=== PATIENT | female | born 1990 | race Caucasian/White ===

== ENCOUNTER 2020-10-14 06:57 | Inpatient (IN) | payer MEDICAID ==
[2020-10-14] MEDS ORDERED: Calcium Carbonate 500 MG Tab.Chew PO PRN (07:46)
[2020-10-14] MEDS ORDERED: Sodium Chloride 0.9% 10 ML Syringe FLUSH PRN (07:46)
[2020-10-14] MEDS ORDERED: Ondansetron 4 MG/2 ML SDV IV PRN (07:46)
[2020-10-14] MEDS ORDERED: Oxytocin 10 Units/1 ML SDV IM ONE (08:00)
[2020-10-14] MEDS ORDERED: Misoprostol 50 MCG (1/2 of 100 MCG) Tab PO ONE (08:00)
--- NOTE | 2020-10-14 08:01 | PCM.LDHP ---
L&D History of Present Illness - General Date of Service: 10/14/20 Admit Problem/Dx: Patient Status Order with Admit Dx/Problem 10/14/20 07:46 Patient Status [ADT] Routine Admission Diagnosis/Problem Admission Diagnosis/Problem Term Source of Information: Patient History Limitations: Reports: No Limitations - History of Present Illness Introduction:: 10/14/20 Trisha is a 30 yo here at 38 0/7 weeks with prelabor ROM of clear fluid today at 0300. She is not feeling any contractions although there are some on the monitor. Baby is active and moving and heart tones are category 1. She is dated based off ultrasound although LMP date makes her due today. She has been measuring big this by 2 cm consistently. She has had an uncomplicated . She did smoke cigarettes but quit a couple of weeks ago. She is GBS negative, rubella immune, HIV/Hep B/C/RPR all NR, B NEGATIVE blood type. Anticipate . Timing/Duration: Reports: intermittent Improves with: Reports: None Worsens with: Reports: None Associated Symptoms: Reports: vaginal fluid (clear amniotic fluid). Denies: vaginal bleeding - Related Data Allergies/Adverse Reactions: Allergies Allergy/AdvReac Type Severity Reaction Status Date / Time cefaclor [From Ceclor] Allergy Cannot Verified 01/14/19 03:39 Remember sulfamethoxazole Allergy Hives Verified 01/14/19 03:39 [From Bactrim] trimethoprim [From Bactrim] Allergy Hives Verified 01/14/19 03:39 Home Medications: Home Meds Albuterol Sulfate 3 inh IH Q6HR PRN 10/14/20 [History] FLUoxetine HCl [Prozac] 20 mg PO DAILY 10/14/20 [History] 25/Iron/Folate 6/Dha [Vitamedmd One Rx Softgel] 1 cap PO DAILY 10/14/20 [History] Past Medical History HEENT History: Reports: Impaired Vision Cardiovascular History: Reports: Syncope Respiratory History: Reports: Asthma, Sleep Apnea Gastrointestinal History: Reports: Chronic Constipation, Chronic Diarrhea [employer] History: Reports: : 1 Para: 0 LMP (Approximate): Musculoskeletal History: Reports: Fracture, Other (See Below) Other Musculoskeletal History: broken nose Psychiatric History: Reports: Addiction, Anxiety, Depression, Psych Hospitalization(s), Suicide Attempt, Other (See Below) Other Psychiatric History: ETOH and Meth - Infectious Disease History Infectious Disease History: Reports: Chicken Pox Social & Family History - Tobacco Use Tobacco Use Status *Q: Former Tobacco User Tobacco Use Within Last Twelve Months: Cigarettes - Caffeine Use Caffeine Use: Reports: Coffee, Soda - Alcohol Use Alcohol Use History: No H&P Review of Systems - Review of Systems: Review Of Systems: See Below General: Reports: No Symptoms HEENT: Reports: No Symptoms Pulmonary: Reports: No Symptoms Cardiovascular: Reports: No Symptoms Gastrointestinal: Reports: No Symptoms Genitourinary: Reports: No Symptoms Musculoskeletal: Reports: No Symptoms Skin: Reports: No Symptoms Psychiatric: Reports: No Symptoms Neurological: Reports: No Symptoms Hematologic/Lymphatic: Reports: No Symptoms Immunologic: Reports: No Symptoms L&D Exam - Exam Exam: See Below - Vital Signs Vital Signs: Last Vital Signs Temp 36.6 C 10/14/20 07:28 Pulse 72 10/14/20 07:28 Resp 20 10/14/20 07:28 BP 143/88 H 10/14/20 07:28 Pulse Ox 97 10/14/20 07:28 Weight: 118.388 kg - OB Specific Contraction Frequency (min): intermittent Contraction Intensity: Mild Movement: Active Heart Tones: Present Heart Rate (FHR) Variability: Moderate (6-25 bmp) Presentation: Vertex - Wilson Score Wilson Score Cervix Position: Midposition Wilson Score Consistency: Medium Wilson Score Effacement: 51-70% Wilson Score Dilation: 1-2 cm Wilson Score Infant's Station: -2 Wilson Score Total: 6 - Exam General: Alert, Oriented HEENT: PERRLA, Conjunctiva Clear, EACs Clear, EOMI, Hearing Intact, Mucosa Moist & [place], Nares Patent, Normal Nasal Septum, Pupils Equal, Pupils Reactive Neck: Supple, Trachea Midline Lungs: Clear to Auscultation, Normal Respiratory Effort Cardiovascular: Regular Rate, Regular Rhythm GI/Abdominal Exam: Normal Bowel Sounds, Soft, Non-Tender, No Mass, Pelvis Stable Rectal Exam: Normal Exam Genitourinary: Normal external exam, Normal bimanual exam, Cervical dilitation. No: Vaginal bleeding Back Exam: Normal Inspection, Full Range of Motion Extremities: Normal Inspection, Normal Range of Motion, Non-Tender, No Pedal Edema, Normal Capillary Refill Skin: Warm, Dry, Intact Neurological: Cranial Nerves Intact, Reflexes Equal Bilateral Psychiatric: Alert, Normal Affect, Normal Mood - Patient Data Lab Results Last 24 hrs: Laboratory Results - last 24 hr 10/14/20 10/14/20 Range/Units 07:13 07:20 Urine Color Yellow (YELLOW) Urine Appearance Cloudy A (CLEAR) Urine pH 7.0 (5.0-8.0) Ur Specific [place] 1.020 (1.008-1.030) Urine Protein 100 H (NEGATIVE) mg/dL Urine Glucose (UA) Negative (NEGATIVE) mg/dL Urine Ketones Negative (NEGATIVE) mg/dL Urine Occult Blood Trace-intact H (NEGATIVE) Urine Nitrite Negative (NEGATIVE) Urine Bilirubin Negative (NEGATIVE) Urine Urobilinogen 0.2 (0.2-1.0) EU/dL Ur Leukocyte Esterase Trace H (NEGATIVE) Urine RBC 0-5 (0-5) Urine WBC 0-5 (0-5) Ur Epithelial Cells Many Amorphous Sediment Few Urine Bacteria Moderate Urine Mucus Moderate Membrane Rupture Positive H (NEGATIVE) - Problem List (1) 38 weeks gestation of SNOMED Code(s): 05648872 ICD Code: Z3A.38 - 38 WEEKS GESTATION OF Status: Acute Current Visit: Yes (2) Rupture of membranes with clear amniotic fluid SNOMED Code(s): 874715743, 123562337 ICD Code: [id number] - Status: Acute Current Visit: Yes Problem List Initiated/Reviewed/Updated: Yes Orders Last 24hrs: Active Orders 24 hr Category Date Time Status Patient Status [ADT] Routine ADT 10/14/20 07:46 Ordered Communication Order [RC] ASDIRECTED Care 10/14/20 07:46 Ordered Heart Tones [RC] PER UNIT ROUTINE Care 10/14/20 07:46 Ordered Notify Provider Vital Signs [RC] PRN Care 10/14/20 07:48 Ordered Notify Provider [RC] PRN Care 10/14/20 07:46 Ordered OB Check [OM.PC] Click to Edit Care 10/14/20 07:04 Ordered Up ad Mariel [RC] ASDIRECTED Care 10/14/20 07:46 Ordered Vital Signs [RC] PER UNIT ROUTINE Care 10/14/20 07:46 Ordered Regular Diet [DIET] Diet 10/14/20 Breakfast Ordered CBC W/O DIFF,HEMOGRAM [HEME] Routine Lab 10/14/20 07:46 Ordered Calcium Carbonate [Tums] Med 10/14/20 07:46 Ordered 1,000 mg PO Q2HR PRN Ondansetron [Zofran] Med 10/14/20 07:46 Ordered 4 mg IV Q4H PRN Oxytocin [Pitocin] Med 10/14/20 07:46 Once 10 unit IM ONETIME ONE Sodium Chloride 0.9% [Saline Flush] Med 10/14/20 07:46 Ordered 10 ml FLUSH ASDIRECTED PRN miSOPROStoL [Cytotec] Med 10/14/20 07:50 Once 50 mcg PO ONETIME ONE Saline Lock Insert [OM.PC] Routine Oth 10/14/20 07:46 Ordered Resuscitation Status Routine Resus Stat 10/14/20 07:46 Ordered Medication Orders Calcium Carbonate/Glycine (Calcium Carbonate 500 Mg Tab.Chew) 1,000 mg PO Q2H PRN PRN Reason: Indigestion Misoprostol (Misoprostol 50 Mcg (1/2 Of 100 Mcg) Tab) 50 mcg PO ONETIME ONE Stop: 10/14/20 08:01 Ondansetron HCl (Ondansetron 4 Mg/2 Ml Sdv) 4 mg IV Q4H PRN PRN Reason: Nausea/Vomiting Oxytocin (Oxytocin 10 Units/1 Ml Sdv) 10 unit IM ONETIME ONE Stop: 10/14/20 08:01 Sodium Chloride (Sodium Chloride 0.9% 10 Ml Syringe) 10 ml FLUSH ASDIRECTED PRN PRN Reason: Keep Vein Open Assessment/Plan Comment:: 10/14/20 30 yo at 38 0/7 weeks here with prelabor ROM of clear fluid Intermittent contractions, not felt Uncomplicated SVE /-2 GBS negative B NEGATIVE blood type, rhogam done at 28 weeks Plan: Options discussed including expectant management, oral cytotec, or IV pitocin. Patient agrees to oral cytotec to ripen cervix Intermittent monitoring Plan will be to recheck at noon or earlier if needed Anticipate
--- NOTE | 2020-10-14 14:21 | PCM.PNLD ---
Labor Progress Note - VS & Meds Vital Signs: Last Vital Signs Temp 36.4 C 10/14/20 11:30 Pulse 74 10/14/20 11:30 Resp 16 10/14/20 11:30 BP 129/75 10/14/20 11:30 Pulse Ox 98 10/14/20 08:54 Active Medications: Current Medications Calcium Carbonate/Glycine (Calcium Carbonate 500 Mg Tab.Chew) 1,000 mg PO Q2H PRN PRN Reason: Indigestion Ondansetron HCl (Ondansetron 4 Mg/2 Ml Sdv) 4 mg IV Q4H PRN PRN Reason: Nausea/Vomiting Sodium Chloride (Sodium Chloride 0.9% 10 Ml Syringe) 10 ml FLUSH ASDIRECTED PRN PRN Reason: Keep Vein Open Discontinued Medications Misoprostol (Misoprostol 50 Mcg (1/2 Of 100 Mcg) Tab) 50 mcg PO ONETIME ONE Stop: 10/14/20 08:01 Last Admin: 10/14/20 08:00 Dose: 50 mcg Documented by: Oxytocin (Oxytocin 10 Units/1 Ml Sdv) 10 unit IM ONETIME ONE Stop: 10/14/20 08:01 - Uterine Contractions Uterine Monitoring Mode: External [place] Contraction Frequency (min): 5 Contraction Duration (sec): 30-70 Contraction Intensity: Mild to Moderate Uterine Resting Tone: Soft - Monitoring Monitor Mode: External Ultrasound Heart Rate (FHR) Variability: Moderate (6-25 bmp) Accelerations: Present, 15x15 Decelerations: None Strip Review: Category I - Vaginal Exam Dilation (cm): 3 Effacement (Percent): 80 Station: -2 Cervical Position: Midposition Sterile Vaginal Exam Performed By: Skye Prasad - Labor Progress (Free Text) Labor Progress: 10/14/20 Patient is feeling contractions every 5-6 minutes, moderate. Novii is on and picking up small contractions that are not palpated. SVE /-2. Oral cytotec 25 mcg ordered. Patient will use the tub now for pain control. Continue to monitor.
[2020-10-14] MEDS ORDERED: Misoprostol 25 MCG (1/4 of 100 MCG) Tab PO ONE (14:30)
--- NOTE | 2020-10-14 16:31 | PCM.PNLD ---
Labor Progress Note - VS & Meds Vital Signs: Last Vital Signs Temp 36.7 C 10/14/20 15:33 Pulse 65 10/14/20 15:33 Resp 16 10/14/20 15:33 BP 143/85 H 10/14/20 15:33 Pulse Ox 98 10/14/20 08:54 Active Medications: Current Medications Calcium Carbonate/Glycine (Calcium Carbonate 500 Mg Tab.Chew) 1,000 mg PO Q2H PRN PRN Reason: Indigestion Oxytocin/Sodium Chloride (Pitocin In Ns 20 Units/1,000 Ml) 20 unit in 1,000 mls @ 999 mls/hr IV ASDIRECTED ANGUS Ondansetron HCl (Ondansetron 4 Mg/2 Ml Sdv) 4 mg IV Q4H PRN PRN Reason: Nausea/Vomiting Sodium Chloride (Sodium Chloride 0.9% 10 Ml Syringe) 10 ml FLUSH ASDIRECTED PRN PRN Reason: Keep Vein Open Discontinued Medications Misoprostol (Misoprostol 50 Mcg (1/2 Of 100 Mcg) Tab) 50 mcg PO ONETIME ONE Stop: 10/14/20 08:01 Last Admin: 10/14/20 08:00 Dose: 50 mcg Documented by: Misoprostol (Misoprostol 25 Mcg (1/4 Of 100 Mcg) Tab) 25 mcg PO ONETIME ONE Stop: 10/14/20 14:31 Last Admin: 10/14/20 14:47 Dose: 25 mcg Documented by: Oxytocin (Oxytocin 10 Units/1 Ml Sdv) 10 unit IM ONETIME ONE Stop: 10/14/20 08:01 Last Admin: 10/14/20 15:47 Dose: Not Given Documented by: - Uterine Contractions Uterine Monitoring Mode: External [place] Contraction Frequency (min): 4-5 Contraction Duration (sec): 40-60 Contraction Intensity: Mild to Moderate Uterine Resting Tone: Soft - Monitoring Monitor Mode: External Ultrasound Heart Rate (FHR) Variability: Moderate (6-25 bmp) Accelerations: Present, 15x15 Decelerations: None Strip Review: Category I - Vaginal Exam Dilation (cm): 3-4 Effacement (Percent): 90 Station: -2 Cervical Position: Posterior Sterile Vaginal Exam Performed By: Skye Prasad - Labor Progress (Free Text) Labor Progress: 10/14/20 SVE 3-4/90/-2, patient feeling strong contractions every 4-5 min. She is using the tub for pain control, wants to use nitrous when she is ready. Plan is to do expectant management for now and recheck in 2 hours and consider pitocin titration then. Category 1 tracing.
--- NOTE | 2020-10-14 22:16 | PCM.PNLD ---
Labor Progress Note - VS & Meds Vital Signs: Last Vital Signs Temp 37.0 C 10/14/20 19:36 Pulse 67 10/14/20 21:00 Resp 18 10/14/20 21:00 BP 153/99 H 10/14/20 21:00 Pulse Ox 99 10/14/20 19:50 Active Medications: Current Medications Calcium Carbonate/Glycine (Calcium Carbonate 500 Mg Tab.Chew) 1,000 mg PO Q2H PRN PRN Reason: Indigestion Oxytocin/Sodium Chloride (Pitocin In Ns 20 Units/1,000 Ml) 20 unit in 1,000 mls @ 999 mls/hr IV ASDIRECTED ANGUS Last Infusion: 10/14/20 20:52 Dose: 12 mls/hr Documented by: Ondansetron HCl (Ondansetron 4 Mg/2 Ml Sdv) 4 mg IV Q4H PRN PRN Reason: Nausea/Vomiting Sodium Chloride (Sodium Chloride 0.9% 10 Ml Syringe) 10 ml FLUSH ASDIRECTED PRN PRN Reason: Keep Vein Open Discontinued Medications Misoprostol (Misoprostol 50 Mcg (1/2 Of 100 Mcg) Tab) 50 mcg PO ONETIME ONE Stop: 10/14/20 08:01 Last Admin: 10/14/20 08:00 Dose: 50 mcg Documented by: Misoprostol (Misoprostol 25 Mcg (1/4 Of 100 Mcg) Tab) 25 mcg PO ONETIME ONE Stop: 10/14/20 14:31 Last Admin: 10/14/20 14:47 Dose: 25 mcg Documented by: Oxytocin (Oxytocin 10 Units/1 Ml Sdv) 10 unit IM ONETIME ONE Stop: 10/14/20 08:01 Last Admin: 10/14/20 15:47 Dose: Not Given Documented by: - Uterine Contractions Uterine Monitoring Mode: External [place] Contraction Frequency (min): 1.5-3 Contraction Duration (sec): 40-60 Contraction Intensity: Mild to Moderate Uterine Resting Tone: Soft Other Uterine Monitoring: NOVII - Monitoring Monitor Mode: External Ultrasound Heart Rate (FHR) Baseline: 130 Heart Rate (FHR) Variability: Moderate (6-25 bmp) Accelerations: Present, 15x15 Decelerations: None, Early Strip Review: Category II - Vaginal Exam Dilation (cm): 6 Effacement (Percent): 90 Station: -1 Cervical Position: Midposition Sterile Vaginal Exam Performed By: Skye Prasad - Labor Progress (Free Text) Labor Progress: 10/14/20 Patient using nitrous for pain control. Very difficult time getting baby to continue to brain picker on Novii regardless of troubleshooting, moving monitor. Moved to portable set now. Good variability, category 1-2 strip. Tub and hands and knees used. Continue to monitor closely.
[2020-10-14] MEDS ORDERED: Sodium Chloride 0.9% 500 ML IV ONE (23:40)
[2020-10-15] MEDS ORDERED: Sodium Chloride 0.9% 10 ML Syringe FLUSH PRN (00:36)
[2020-10-15] MEDS ORDERED: Naloxone 0.4 MG/ML SDV IVPUSH PRN (00:36)
[2020-10-15] MEDS ORDERED: ePHEDrine 50 MG/ML SDV IVPUSH PRN (00:36)
[2020-10-15] MEDS ORDERED: diphenhydrAMINE 50 MG/ML SDV IVPUSH PRN ×2 (00:36)
[2020-10-15] MEDS ORDERED: Sodium Chloride 0.9% 1,000 ML IV SCH ×2 (00:42→00:55)
[2020-10-15] MEDS ORDERED: Ropivacaine 100 ML ONE (01:34)
[2020-10-15] MEDS ORDERED: Terbutaline 1 MG/ML SDV ONE (01:48)
[2020-10-15] MEDS ORDERED: Oxytocin 10 Units/1 ML SDV ONE ×3 (01:52→04:21)
[2020-10-15] MEDS ORDERED: Ondansetron 4 MG/2 ML SDV ONE (01:52)
[2020-10-15] MEDS ORDERED: Sodium Chloride 0.9% 20 ML ONE (01:53)
[2020-10-15] MEDS ORDERED: ePHEDrine 50 MG/ML SDV ONE (01:53)
[2020-10-15] MEDS ORDERED: Phenylephrine 1% 10 MG/ML SDV ONE (01:53)
[2020-10-15] MEDS ORDERED: Bupivacaine 0.5% 30 ML SDV ONE (01:55)
[2020-10-15] MEDS: Levofloxacin 500 MG/20 ML SDV ONE ×2 (02:00→02:40)
[2020-10-15] MEDS ORDERED: Terbutaline 1 MG/ML SDV SUBCUT ONE (02:00)
--- NOTE | 2020-10-15 02:03 | PCM.PNLD ---
Labor Progress Note - VS & Meds Vital Signs: Last Vital Signs Temp 37.0 C 10/14/20 19:36 Pulse 79 10/14/20 23:39 Resp 16 10/14/20 23:39 BP 140/74 10/14/20 23:06 Pulse Ox 98 10/14/20 23:39 Active Medications: Current Medications Calcium Carbonate/Glycine (Calcium Carbonate 500 Mg Tab.Chew) 1,000 mg PO Q2H PRN PRN Reason: Indigestion Diphenhydramine HCl (Diphenhydramine 50 Mg/Ml Sdv) 25 mg IVPUSH Q6H PRN PRN Reason: Itching Diphenhydramine HCl (Diphenhydramine 50 Mg/Ml Sdv) 50 mg IVPUSH Q6H PRN PRN Reason: Itching Ephedrine Sulfate (Ephedrine 50 Mg/Ml Sdv) 10 mg IVPUSH ASDIRECTED PRN PRN Reason: Hypotension Oxytocin/Sodium Chloride (Pitocin In Ns 20 Units/1,000 Ml) 20 unit in 1,000 mls @ 999 mls/hr IV ASDIRECTED [facility] [place] Last Infusion: 10/15/20 00:55 Dose: 6 mls/hr Documented by: Sodium Chloride (Normal Saline) 500 mls @ 200 mls/hr IV .BOLUS ONE Stop: 10/15/20 02:09 Last Admin: 10/14/20 23:37 Dose: 200 mls/hr Documented by: Sodium Chloride (Normal Saline) 1,000 mls @ 999 mls/hr IV ASDIRECTED [facility] [place] Naloxone HCl (Naloxone 0.4 Mg/Ml Sdv) 0.1 mg IVPUSH ASDIRECTED PRN PRN Reason: Oversedation Ondansetron HCl (Ondansetron 4 Mg/2 Ml Sdv) 4 mg IV Q4H PRN PRN Reason: Nausea/Vomiting Sodium Chloride (Sodium Chloride 0.9% 10 Ml Syringe) 10 ml FLUSH ASDIRECTED PRN PRN Reason: Keep Vein Open Sodium Chloride (Sodium Chloride 0.9% 10 Ml Syringe) 10 ml FLUSH ASDIRECTED PRN PRN Reason: Keep Vein Open Discontinued Medications Bupivacaine HCl (Bupivacaine 0.5% 30 Ml Sdv) Confirm Administered Dose 30 ml .ROUTE .STK-MED ONE Stop: 10/15/20 01:56 Ephedrine Sulfate (Ephedrine 50 Mg/Ml Sdv) Confirm Administered Dose 50 mg .ROUTE .STK-MED ONE Stop: 10/15/20 01:54 Ropivacaine (Naropin 0.2%) Confirm Administered Dose 100 mls @ as directed .ROUTE .STK-MED ONE Stop: 10/15/20 01:35 Sodium Chloride (Normal Saline) Confirm Administered Dose 30 mls @ as directed .ROUTE .STK-MED ONE Stop: 10/15/20 01:54 Misoprostol (Misoprostol 50 Mcg (1/2 Of 100 Mcg) Tab) 50 mcg PO ONETIME ONE Stop: 10/14/20 08:01 Last Admin: 10/14/20 08:00 Dose: 50 mcg Documented by: Misoprostol (Misoprostol 25 Mcg (1/4 Of 100 Mcg) Tab) 25 mcg PO ONETIME ONE Stop: 10/14/20 14:31 Last Admin: 10/14/20 14:47 Dose: 25 mcg Documented by: Ondansetron HCl (Ondansetron 4 Mg/2 Ml Sdv) Confirm Administered Dose 4 mg .ROUTE .STK-MED ONE Stop: 10/15/20 01:53 Oxytocin (Oxytocin 10 Units/1 Ml Sdv) 10 unit IM ONETIME ONE Stop: 10/14/20 08:01 Last Admin: 10/14/20 15:47 Dose: Not Given Documented by: Oxytocin (Oxytocin 10 Units/1 Ml Sdv) Confirm Administered Dose 20 unit .ROUTE .STK-MED ONE Stop: 10/15/20 01:53 Phenylephrine HCl (Phenylephrine 1% 10 Mg/Ml Sdv) Confirm Administered Dose 10 mg .ROUTE .STK-MED ONE Stop: 10/15/20 01:54 Terbutaline Sulfate (Terbutaline 1 Mg/Ml Sdv) Confirm Administered Dose 1 mg .ROUTE .STK-MED ONE Stop: 10/15/20 01:49 - Uterine Contractions Uterine Monitoring Mode: External [place] Contraction Frequency (min): 1-2.5 Contraction Duration (sec): 60-70 Contraction Intensity: Moderate Uterine Resting Tone: Soft Other Uterine Monitoring: NOVII - Monitoring Monitor Mode: External Ultrasound Heart Rate (FHR) Baseline: 130 Heart Rate (FHR) Variability: Moderate (6-25 bmp) Accelerations: Present, 15x15 Decelerations: None, Early Strip Review: Category II - Vaginal Exam Dilation (cm): 7 Effacement (Percent): 90 Station: -1 Cervical Position: Midposition Sterile Vaginal Exam Performed By: Skye Prasad - Labor Progress (Free Text) Labor Progress: 10/15/20 Patient began to have recurrent variable decelerations just before epidural. Very difficult time with FHT's during epidural but spot checks were always 140's. After epidural recurrent late decelerations began. No cervical change from last check. Interventions included several position changes, fluid bolus, pitocin off, oxygen on. Ultimately I discussed the absence of cervical change with patient and the category 2 tracing with baby not tolerating labor. We decided to call section emergently at 0144. Terbutaline given SQ to help with decelerations.
[2020-10-15] MEDS ORDERED: cefOXitin 1 GM Vial ONE (02:05)
[2020-10-15] MEDS ORDERED: cefOXitin 2 GM Vial ONE (02:22)
[2020-10-15] MEDS ORDERED: Morphine PF 10 MG/10 ML SDV ONE (02:29)
[2020-10-15] MEDS ORDERED: Oxytocin 10 Units/1 ML SDV IM ONE (02:35)
[2020-10-15] MEDS ORDERED: Sodium Chloride 0.9% 100 ML ONE (02:44)
[2020-10-15] MEDS ORDERED: Oxytocin 10 Units/1 ML SDV IV ONE (04:25)
--- NOTE | 2020-10-15 04:26 | ANES ---
DATE OF SERVICE: 10/15/2020 I was called just after midnight for a young lady up in the OB Department requesting a labor epidural, who was in active labor. I was at the bedside at approximately 0050. Brief history and physical was done. The patient is healthy. Does not have any blood thinners for medication, and platelet count was noted to be 293. Risks and benefits including spinal headache and risk for infection were discussed with the patient. The patient verbalizes her understanding and wishes to proceed with the labor epidural at this time. The patient was sat at the edge of the bed. Betadine prep x3 to the lumbar region was done. Sterile drape was placed. 1% lidocaine skin wheal and deep was done. A 17-gauge Tuohy needle was inserted at approximately the L3-4 position. I took several attempts at that level, just unable to find the correct position for the patient, but was able to find flavum and was able to get nice loss resistance too. Catheter was then easily threaded through the Touhy needle. Loss of resistance was noted to be at about 6 cm. Catheter was threaded through and secured at approximately 15 cm. I then proceeded to give the patient a 5 mL test dose. Epidural catheter was then fully secured. The patient was laid down in supine position with left uterine displacement and head of bed slightly elevated. The patient showed no signs of intravascular injection of local anesthetic or subarachnoid block. I then proceeded to give the patient a 12 mL bolus of 0.2% ropivacaine via the epidural and started her on a 0.2% ropivacaine drip at 12 mL an hour. The patient tolerated the overall procedure without difficulty. We will continue to monitor the patient as needed. Barry Johnson CRNA /[id number]
[2020-10-15] MEDS ORDERED: Dextrose 5%-Lactated Ringers 1,000 ML IV SCH (04:30)
[2020-10-15] MEDS ORDERED: hydrOXYzine HCL 100 MG/2 ML SDV IM PRN (04:30)
[2020-10-15] MEDS ORDERED: Ondansetron 4 MG/2 ML SDV IVPUSH PRN (04:31)
[2020-10-15] MEDS: Ibuprofen 600 MG Tab PO SCH ×4 (05:36→23:17)
[2020-10-15] MEDS ORDERED: Ondansetron 4 MG Tab.DIS PO PRN (07:46)
[2020-10-15] MEDS ORDERED: HYDROmorphone 2 MG Tab PO PRN (07:47)
--- NOTE | 2020-10-15 08:29 | PN ---
DATE OF SERVICE: 10/15/2020 SUBJECTIVE: Trisha had a around 2:15 this a.m. She reports her pain is controlled. The epidural is out. Vital signs have been stable. She has no questions or concerns today. OBJECTIVE: GENERAL: Trisha is a pleasant 30-year-old female, alert and orientated. VITAL SIGNS: TPR is 97.7, 82, 16, blood pressure 122/72. HEENT: Negative. NECK: Supple. HEART: Regular rate and rhythm. LUNGS: Clear. ABDOMEN: Negative. EXTREMITIES: Without peripheral edema. ASSESSMENT: Emergency for distress, date 10/15/2020. PLAN: 1. Discontinue Robert catheter. Regular diet. 2. Decrease IV to 100 mL per hour. 3. Dilaudid 2 mg q.4 hours p.r.n. pain. 4. Dressing off, may shower. 5. Saline lock IV if oral intake adequate. 6. Colace 100 mg b.i.d. p.o. 7. Dulcolax 10 mg b.i.d. p.o. 8. Continue use of incentive spirometer. 9. We will evaluate p.r.n. or in a.m. Gavi Huynh PA-C /[id number]
[2020-10-15] MEDS ORDERED: Acetaminophen 325 MG Tab PO SCH (09:00)
[2020-10-15] MEDS: Acetaminophen 500 MG Tab PO SCH ×3 (09:09→20:15)
[2020-10-15] MEDS: Docusate Sodium 100 MG Cap PO SCH ×2 (09:10→20:15)
[2020-10-15] MEDS: Bisacodyl 5 MG Tab PO SCH ×2 (09:11→20:16)
[2020-10-15] MEDS: Dextrose 5%-Lactated Ringers 1,000 ML IV SCH ×2 (10:09→20:15)
[2020-10-16] MEDS ORDERED: Levofloxacin/Dextrose 5%-Water 500 MG in Premix Bag 1 BAG IV SCH (02:00)
[2020-10-16] MEDS: Acetaminophen 500 MG Tab PO SCH ×2 (02:50→08:35)
[2020-10-16] MEDS: Ibuprofen 600 MG Tab PO SCH (06:44)
[2020-10-16 07:50] VITALS: BP 115/72; PULSE 66
[2020-10-16] MEDS: Bisacodyl 5 MG Tab PO SCH (08:35)
[2020-10-16] MEDS: Docusate Sodium 100 MG Cap PO SCH (08:36)
[2020-10-16] MEDS ORDERED: Lanolin 100% Cream 40 GM Tube TOP PRN (08:37)
--- NOTE | 2020-10-16 09:51 | DISCH ---
ADMISSION DIAGNOSIS: 38 weeks and rupture of membranes with clear amniotic fluid. DISCHARGE DIAGNOSES: 1. Emergency for distress. Date: 10/15/2020. Surgeon: Dale Montes MD. HISTORY: Trisha Mulligan was in active labor with ruptured membranes, distress. Emergency was called. After preoperative evaluation and discussion of possible risks and possible complications, she wished to proceed with surgical procedure. HOSPITAL COURSE: No operative complications. On postoperative day #1, Robert was discontinued, IV was decreased, and then saline locked. She was started on bowel stimulation. Her activity was good. She was using Tylenol and Motrin for pain, and on postoperative day #2, was able to be discharged to home. PHYSICAL EXAMINATION: GENERAL: Trisha Mulligan is a 30-year-old female. VITAL SIGNS: Height is 5 feet 6 inches, weight is 261 pounds. TPR is 98.3, 66, 16, blood pressure 115/72. HEENT: Negative. NECK: Supple. HEART: Regular rate and rhythm. LUNGS: Clear. ABDOMEN: She has a low Pfannenstiel incision and it is glued. Recommend abdominal binder. EXTREMITIES: Without peripheral edema. DISPOSITION: Discharged to home. CONDITION: Stable and improving. FOLLOWUP APPOINTMENT: With Gavi Huynh PA-C, 10/30/2020, 10 a.m. Followup with her professional skater will be scheduled. HOME MEDICATIONS: 1. Dilaudid 2 mg 1 q.6 hours p.r.n. pain, #24. 2. Colace 100 mg p.o. b.i.d., #60. 3. Motrin 600 mg p.o. q.6 hours, #40. 4. Tylenol Extra Strength 1000 mg p.o. q.6 hours, #100. 5. She is to resume her vitamin. 6. Prozac 20 mg daily. 7. Albuterol inhaler every 6 hours p.r.n. DIET: Regular diet as tolerated. Drink 8 to 10 glasses of water a day. ACTIVITY: No lifting greater than 10 pounds and baby and car seat for 6 weeks. Walk 6 times daily and 3 to 4 minute for every hour you are riding in the car. Driving: Do not drive while on the Dilaudid or within 6 hours after taking. DISCHARGE INSTRUCTIONS: Keep operative site clean and dry. Wear abdominal binder, pulling up abdomen, so the skin does not overlap on the incision. Notify provider of fever, increased pain, swelling, redness, drainage, nausea, or vomiting. OTHER INSTRUCTION: Use incentive spirometer 10 times every hour while awake for 1 week. /[id number]
--- NOTE | 2020-10-22 13:32 | OR ---
DATE OF PROCEDURE: 10/15/2020 SURGEON: Dale Montes MD PREOPERATIVE DIAGNOSIS: Near-term with decelerations (resolved at the time of section). PROCEDURE PERFORMED: section (35981). ANESTHESIA: Spinal. PATIENT CARE TECHNICIAN INSTRUCTOR: Skye Prasad CNM INDICATION FOR PROCEDURE: This is a 30-year-old female presenting with near-term . She developed some decelerations. It was felt that a section would be warranted at this time. Following the induction of medications being stopped, the decelerations have stopped. The plan is to proceed with a section. Potential risks of the procedure including bleeding, infection, and injury to the mother and/or baby were all reviewed, and the patient wishes to proceed. DETAILS OF PROCEDURE: The patient was taken to the operating room and placed in a supine position. After spinal anesthetic was placed, a roll was positioned underneath the right hip to offload the vena cava and a Robert catheter was inserted. The abdomen was then prepped and draped. A standard Pfannenstiel incision was made and carried down through the skin, subcutaneous tissue, and through the external oblique aponeurosis. Subaponeurotic flaps were then raised superiorly and inferiorly and the midline fascia approximated. Peritoneal reflection of the bladder on the uterus was then divided and reflected downward. A transverse lower uterine segment incision was then made and carried down through the full thickness of the uterus and membranes. A viable male was then delivered through vertex presentation. Cord was clamped and cut, and care then initiated per Skye Prasad CNM. The patient was given IV and intrauterine oxytocin and IV cefoxitin. Good uterine contractions were noted. The placenta and membranes were then delivered without difficulty. The uterine incision closed with 2 layers of 2-0 Vicryl stitch as was the peritoneal reflection of the bladder on the uterus. The midline peritoneum was approximated with #2 Vicryl stitch as was the anterior rectus sheath. Subcutaneous tissue reapproximated with some 4-0 Vicryl stitch and the skin with a 4-0 Vicryl subcuticular stitch. Surgical glue was applied. The patient was taken to the recovery room in satisfactory condition. The nurse equipment or machinery cleaner, Skye Prasad, assisted in this case as per the ACOG recommendations. Dale Montes MD /[id number]
== END 2020-10-16 10:30 | disposition home or self-care (01) | DRG 786 ==
LOC: JP.OBCHECK 06:57 → JP.OB 07:46 → UNDOADMOB 07:50 → OBSVTOIN 10-15 02:33 → JP.MS 10-15 04:00
PROVIDERS: ADMIT Advanced Practice Midwife; ATTEND Advanced Practice Midwife
PROC: 3E0R3BZ Introduction of Anesthetic Agent into Spinal Canal, Percutaneous Approach (ICD-10-PCS; principal; 2020-10-15)
PROC: 00HU33Z Insertion of Infusion Device into Spinal Canal, Percutaneous Approach (ICD-10-PCS; 2020-10-15)
PROC: 3E0334Z Introduction of Serum, Toxoid and Vaccine into Peripheral Vein, Percutaneous Approach (ICD-10-PCS; 2020-10-15)
PROC: 10D00Z1 Extraction of Products of Conception, Low, Open Approach (ICD-10-PCS; 2020-10-15)
DX: O42.02 Full-term premature rupture of membranes, onset of labor within 24 hours of rupture (principal); O41.1230 Chorioamnionitis, third trimester, not applicable or unspecified; O76 Abnormality in fetal heart rate and rhythm complicating labor and delivery; O99.52 Diseases of the respiratory system complicating childbirth; J45.909 Unspecified asthma, uncomplicated; Z20.822 Contact with and (suspected) exposure to COVID-19; O99.62 Diseases of the digestive system complicating childbirth; K59.09 Other constipation; K52.9 Noninfective gastroenteritis and colitis, unspecified; O99.344 Other mental disorders complicating childbirth; F41.9 Anxiety disorder, unspecified; F32.9 Major depressive disorder, single episode, unspecified; O26.893 Other specified pregnancy related conditions, third trimester; Z3A.38 38 weeks gestation of pregnancy; Z37.0 Single live birth; Z87.891 Personal history of nicotine dependence; Z79.899 Other long term (current) drug therapy; Z88.1 Allergy status to other antibiotic agents; Z88.2 Allergy status to sulfonamides; Z67.21 Type B blood, Rh negative
CPT/HCPCS: 36415; 36430; 80053; 80305-QW; 81001; 82570; 83615; 84112; 84156; 85025; 85027; 85460; 86850; 86900; 86901; 88307; 88312; 99211; A9270-GY; J0694; J1956; J2270; J2370; J2405; J2590; J2790; J2795; J3105; J3490; J7030; J7040; J7121; U0002

== ENCOUNTER 2021-06-11 11:37 | Emergency (ER) | payer MEDICAID ==
[2021-06-11 12:22] VITALS: BP 146/86; PULSE 105
[2021-06-11 13:40] LABS: CORONAVIRUS COVID-19 NAA NEGATIVE (NEGATIVE)
== END 2021-06-11 14:11 | disposition home or self-care (01) ==
LOC: JP.ED 11:37
DX: R41.0 Disorientation, unspecified (principal); R53.83 Other fatigue; Z88.1 Allergy status to other antibiotic agents; Z72.0 Tobacco use; Z20.822 Contact with and (suspected) exposure to COVID-19; Z88.8 Allergy status to other drugs, medicaments and biological substances
CPT/HCPCS: 0241U; 36415; 70450; 80053; 80305; 81001; 84443; 85025; 99285; 99283

== ENCOUNTER 2022-04-22 13:25 | Emergency (ER) | payer OTHER, MEDICAID ==
[2022-04-22 15:06] VITALS: BP 122/75; PULSE 63
[2022-04-22] MEDS ORDERED: Ketorolac 30 MG/ML SDV IM ONE (15:28)
[2022-04-22] MEDS ORDERED: Ondansetron 4 MG Tab.DIS PO ONE (15:29)
== END 2022-04-22 16:41 | disposition home or self-care (01) ==
LOC: JP.ED 13:25
DX: S46.212A Strain of muscle, fascia and tendon of other parts of biceps, left arm, initial encounter (principal); M25.532 Pain in left wrist; M25.562 Pain in left knee; M79.631 Pain in right forearm; F17.210 Nicotine dependence, cigarettes, uncomplicated; Z88.1 Allergy status to other antibiotic agents; Z88.2 Allergy status to sulfonamides; Z79.899 Other long term (current) drug therapy; V49.40XA Driver injured in collision with unspecified motor vehicles in traffic accident, initial encounter; Y92.410 Unspecified street and highway as the place of occurrence of the external cause
CPT/HCPCS: 73090; 73110; 73130; 73564; 96372; 99284; J1885; Q0162